=== PATIENT | female | born 1950 | race Caucasian/White ===

== ENCOUNTER 2023-10-17 11:42 | Emergency (ER) | payer MEDICARE, BC ==
[2023-10-17] MEDS: Lidocaine 1% 5 ML VIAL INJECT STA ×2 (13:25→14:35)
[2023-10-17 16:04] VITALS: BP 179/92; PULSE 70
== END 2023-10-17 16:04 | disposition home or self-care (01) ==
LOC: MW.ED 11:42
DX: T81.31XA Disruption of external operation (surgical) wound, not elsewhere classified, initial encounter (principal); Z90.11 Acquired absence of right breast and nipple; I10 Essential (primary) hypertension; Z88.8 Allergy status to other drugs, medicaments and biological substances; Z79.899 Other long term (current) drug therapy; Z90.49 Acquired absence of other specified parts of digestive tract
CPT/HCPCS: 12002; 99283; J3490